=== PATIENT | female | born 1985 | race Two or more races ===

== ENCOUNTER 2017-02-11 10:07 | Emergency (ER) | payer MEDICAID ==
[2017-02-11 11:06] LABS: ANION GAP 13 mmol/L (0-20); BLOOD UREA NITROGEN 6 mg/dl (6-24); CALCIUM 8.6 mg/dl (8.5-10.5); CARBON DIOXIDE-VENOUS 23 mmol/L (22-32); CHLORIDE 110 mmol/l (96-110); CREATININE 0.58 mg/dl (0.50-1.10); GLUCOSE 102 mg/dL (70-110); SODIUM 142 mmol/L (135-145); eGFR VALUE FOR BLACK >90 mL/Min
[2017-02-11 11:11] LABS: POTASSIUM 3.9 mmol/L (3.7-5.1)
== END 2017-02-11 12:25 ==
LOC: EDMED 10:07
PROVIDERS: Emergency Medicine
DX: R07.89 Other chest pain (principal); F17.210 Nicotine dependence, cigarettes, uncomplicated